=== PATIENT | female | born 2000 | race Caucasian/White ===

== ENCOUNTER 2021-10-16 18:59 | Emergency (ER) | payer OTHER, SELFPAY ==
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
[2021-10-16 19:44] VITALS: BP 119/75; PULSE 75; RESP 16; TEMP 36.6; O2SAT 100; BMI 19.3
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
== END 2021-10-16 22:58 | disposition home or self-care (01) ==
PROVIDERS: Emergency Provider Emergency Medicine
DX: S16.1XXA Strain of muscle, fascia and tendon at neck level, initial encounter (principal); V43.62XA Car passenger injured in collision with other type car in traffic accident, initial encounter; Y93.89 Activity, other specified; Y92.414 Local residential or business street as the place of occurrence of the external cause; Y99.9 Unspecified external cause status
CPT/HCPCS: 72040; 99283

== ENCOUNTER 2025-06-25 10:59 | Emergency (ER) | payer OTHER, SELFPAY ==
--- NOTE | ~2025-06-25 | CT_ITS ---
EXAMINATION: CT HEAD WITHOUT CONTRAST CLINICAL INFORMATION: dizziness. resolved numbness COMPARISON: None available. TECHNIQUE: Contiguous axial imaging was performed from the skull base to vertex without intravenous administration of contrast. This CT examination was performed using dose optimization techniques as appropriate, variously including the following: *Automated exposure control *Adjustment of mA and/or kV according to patient size (this includes techniques or standardized protocols for targeted exams where dose is matched to indication/reason for exam; i.e. extremities or head) *Use of iterative reconstruction technique DLP: 595 mGy-cm FINDINGS: No acute intracranial hemorrhage, mass effect, midline shift, hydrocephalus or herniation. Delatorre-white matter differentiation is normal. Posterior cranial fossa contents demonstrated no gross mass effect or acute hemorrhage. Sellar/suprasellar region demonstrated no gross masses. Craniocervical junction is intact with normal position of the cerebellar tonsils. No acute fracture, bony calvarium. No air-fluid levels in the paranasal sinuses. Tympanic cavities and mastoid cells are aerated. Pneumatized right petrous apex, congenital. Sabrina bullosa right middle turbinate. No gross masses in the intraconal or extraconal compartments of the orbits. The eyeballs are intact. CT/CT head/brain wo IV con IMPRESSION: No acute or structural brain abnormality by CT. Electronically signed by: Ray Campbell MD 06/25/2025 12:12 PM EDT
[2025-06-25 11:00] VITALS: BP 116/73; PULSE 85; RESP 18; TEMP 36.7; O2SAT 97; BMI 21.9
--- NOTE | 2025-06-25 11:04 | ECG_ITS ---
Test Reason : dizziness Blood Pressure : */* mmHG Vent. Rate : 70 BPM Atrial Rate : 70 BPM P-R Int : 154 ms QRS Dur : 88 ms QT Int : 376 ms P-R-T Axes : 56 53 44 degrees QTcB Int : 406 ms Sinus rhythm with marked sinus arrhythmia Possible Left atrial enlargement Borderline ECG No previous ECGs available Referred By: Enrique Dhillon Electronically Signed By: ELIE GROSS
--- NOTE | 2025-06-25 11:05 | ED_ITS ---
HPI - General Adult General Chief complaint: Dizziness Stated complaint: dizziness Time Seen by Provider: 06/25/25 11:57 Source: patient Mode of arrival: ambulatory Limitations: no limitations History of Present Illness HPI narrative: This is a 25 years old the female presented to the emergency department with the complaining of dizziness since Tuesday, she stated that Tuesday she fell numbness in the left side of the face and since then she has been feeling dizzy. Patient has no past medical history she is does not take any medicine she is not on control pills. She is fully ambulatory to the ED no ataxia. Onset (ago): day(s) (2) Location: head Radiation: non-radiation Severity: mild Pain Consistency: constant Relieving factors: none Exacerbating factors: none Associated symptoms: denies other symptoms Related Data Allergies Allergy/AdvReac Type Severity Reaction Status Date / Time No Known Allergies Allergy Verified 06/25/25 11:04 [facility] Past Medical History [facility] Narrative: Denies any past medical history Social History Social History Advance Directives: No Advance Directives Information Provided: No Physical Exam ED Exam Exam: She looks well she is not toxic-appearing she is sitting in the stretcher in not acute distress Vital Signs: Vital Signs - 24 hr 06/25/25 12:41 06/25/25 12:41 06/25/25 12:42 Temperature Pulse Rate 60 64 72 Respiratory Rate Blood Pressure 102/51 L 102/69 110/56 L Pulse Oximetry Oxygen Delivery Method 06/25/25 15:15 Temperature 97.3 F Pulse Rate 72 Respiratory Rate 16 Blood Pressure 110/56 L Pulse Oximetry 100 Oxygen Delivery Method Room Air BMI result Body Mass Index 21.9 Vital signs reviewed normal Const General: cooperative, healthy appearing, comfortable, no acute distress, well developed, alert and awake Nutritional Appearance: average body habitus Orientation/consciousness: patient oriented x3 Limitations: no limitations HENMT Head: Yes normal to inspection General nose exam: Normal external nose present Face and sinus: Yes normal facial exam Mouth: Normal oral and palatal mucosa present Neck Neck: Yes normal visual inspection Chest Chest palpation & inspection: normal inspection of the chest Resp Effort & Inspection: normal respiratory effort Auscultation: clear to auscultation bilaterally Cardio Jugular venous distension: no JVD Rate: regular rate Rhythm: regular rhythm GI Inspection: Yes normal to inspection Palpation (GI): Soft to palpation, not firm and nontender Auscultation: normal bowel sounds Skin General skin exam: no rashes or lesions noted Neuro Other: Neuro examination was normal cranial nerve 2-12 are normal she has no deficits in strength cerebellar testing normal incontinent [id number] I examined the gated there is no ataxia, Romberg test is negative General: patient oriented x3 Cranial nerves: Yes CN's II-XII intact bilaterally Motor exam (neuro): 5/5 motor strength present throughout NIH Stroke Scale Internal: Initial- Upon Arrival Level of Consciousness: Alert Level of Consciousness Questions: Answers both questions correctly Level of Consciousness Commands: Performs both tasks correctly Best Gaze: Normal Visual: No visual loss Facial Palsy: Normal Motor Arm (Right): No drift Motor Arm (Left): No drift Motor Leg (Right): No drift Motor Leg (Left): No drift Limb Ataxia: Absent Sensory: Normal Best Language: No aphasia Dysarthia: Normal Extinction and Inattention: No abnormality Score: 0 Course Course Course Narrative: RME: 25 yold female presents to the ED for dizziness off and on since tuesday. patient states left sided nubmness on tuesday that resolved. patient states sensatino of room spinning. patient denies ny chest pain, shortness of breath, facial droop, or trauma. NIH Score 0. labs, EKG, head CT scan ordered. Reevaluation(s) Reevaluation #1: She is feeling better at this time her workup is essentially negative she has no neuro exam normal think she can be discharged home Time: 14:52 Medical Decision Making Medical Decision Making [facility] Narrative: Patient presented with the dizziness is in Tuesday she has no risk factor for cardiovascular disease, it is reasonable to get blood work electrocardiogram On re-examination patient is doing much better she remained hemodynamically stable gait is stable workup negative including head CT and labs anticipate discharge Differential Diagnosis Differential Diagnoses: The differential diagnosis associated with the presentation includes Benign position vertigo/dehydration/unlikely CVA with a normal exam and no risk factor Admission/Observation Consideration of admission/observation: Escalation of care including admission/observation considered Lab Data [facility] Lab Attestation statement: I reviewed the patient's lab results. 06/25/25 11:20 06/25/25 11:20 Labs: Lab Results 06/25/25 Range/Units 11:20 WBC 7.0 (4.8-10.8) X10*3/uL RBC 4.69 (4.20-5.50) X10*6/uL Hgb 13.7 (12.0-16.0) g/dl Hct 42.1 (37.0-47.0) % MCV 89.8 (80.0-98.0) fL MCH 29.2 (27.0-33.0) pg MCHC 32.5 (31.0-35.0) g/dl RDW 13.0 (11.0-16.0) % Plt Count 249 (160-400) X10*3/uL MPV 10.0 (9.4-12.3) fL Immature Gran % (Auto) 0.3 (0.0-0.4) % Neut % (Auto) 73.5 H (45-73) % Lymph % (Auto) 18.6 L (20-40) % Sabine % (Auto) 6.1 (2-11) % Eos % (Auto) 1.4 (0-4) % Baso % (Auto) 0.1 (0-2) % Lymph # (Auto) 1.3 (1.2-4.9) X10*3/uL Sabine # (Auto) 0.4 (0.1-1.2) X10*3/uL Eos # (Auto) 0.1 (0.0-0.4) X10*3/uL Baso # (Auto) 0.0 (0.0-0.2) X10*3/uL Abs Immat Gran (auto) 0.02 (0.00-0.03) X10*3/uL Absolute Neuts (auto) 5.2 (2.0-8.3) x10*3/uL Absolute Nucleated RBC 0.000 (0.0-0.012) X10*3/uL Nucleated RBC % (auto) 0.0 (0.0-0.2) /100WBC PT 10.9 (10.9-12.4) SEC INR 1.0 (0.9-1.1) APTT 31.2 (26.7-34.1) SEC Sodium 142 (135-145) mmol/L Potassium 4.5 (3.3-5.1) mmol/L Chloride 108 (96-108) mmol/L Carbon Dioxide 29 (22-29) mmol/L Anion Gap 10 L (12-20) BUN 7 L (9-16) mg/dL Creatinine 0.78 (0.5-1.4) mg/dL Estim Creat Clear Calc 98.3 Estimated GFR > 60 Random Glucose 103 (60-115) mg/dL Calcium 9.0 (8.4-10.2) mg/dL Magnesium 2.2 (1.6-2.6) mg/dL Total Bilirubin 0.5 (0.0-1.0) mg/dL AST 23 (5-31) U/L ALT < 6 (0-31) U/L Alkaline Phosphatase 56 (39-117) U/L Troponin I High Sens < 2.7 (<3.5-17.0) ng/L Total Protein 7.4 (6.5-8.0) g/dL Albumin 4.6 (3.5-5.0) g/dL Beta HCG, Quant < 2 mIU/mL Independent Interpretation I performed an independent interpretation of an: EKG Interpretation: Normal sinus rhythm rate 75 normal axis normal intervals QRS narrow no ischemia Radiology Impression Discussion of test interpretation with radiology: I have reviewed the radiologist's reading. Radiologist Impression: DLP: 595 mGy-cm FINDINGS: No acute intracranial hemorrhage, mass effect, midline shift, hydrocephalus or herniation. Delatorre-white matter differentiation is normal. Posterior cranial fossa contents demonstrated no gross mass effect or acute hemorrhage. Sellar/suprasellar region demonstrated no gross masses. Craniocervical junction is intact with normal position of the cerebellar tonsils. No acute fracture, bony calvarium. No air-fluid levels in the paranasal sinuses. Tympanic cavities and mastoid cells are aerated. Pneumatized right petrous apex, congenital. Sabrina bullosa right middle turbinate. No gross masses in the intraconal or extraconal compartments of the orbits. The eyeballs are intact. CT/CT head/brain wo IV con IMPRESSION: No acute or structural brain abnormality by CT. Electronically signed by: Ray Campbell MD 06/25/2025 12:12 PM EDT RP Dictated By: Ray Mcallister MD Independent Historian mother Discharge Plan Discharge Clinical Impression: Dizziness Patient Disposition: Home, Self-Care Instructions: Dizziness (ED) Additional Instructions: Drink plenty of fluid rest you should get a primary care physician we will to give you the number of adult primary care number is [phone] or [phone] Return to the emergency room if feeling worse any concern Interventions: ED Discharge Assessment Last Done: 06/25/25 15:15 Discharge Date/Time: 06/25/25 15:17 Print Language: [place]
[2025-06-25 11:24] LABS: MANUAL DIFF FLAG NO
[2025-06-25 11:29] LABS: Hematocrit 42.1 % (37.0-47.0); Hemoglobin 13.7 g/dl (12.0-16.0); Imm Gran Abs Auto 0.02 X10*3/uL (0.00-0.03); Imm Gran Pct Auto 0.3 % (0.0-0.4); Lymphocytes Absolute Auto 1.3 X10*3/uL (1.2-4.9); Mean Corpuscular HGB Conc 32.5 g/dl (31.0-35.0); Mean Corpuscular Hemoglobin 29.2 pg (27.0-33.0); Mean Corpuscular Volume 89.8 fL (80.0-98.0); NRBC Abs Auto 0.000 X10*3/uL (0.0-0.012); NRBC Pct Auto 0.0 /100WBC (0.0-0.2); Platelet Count 249 X10*3/uL (160-400); Red Blood Count 4.69 X10*6/uL (4.20-5.50); White Blood Count 7.0 X10*3/uL (4.8-10.8)
[2025-06-25 11:51] LABS: Alanine Aminotransferase < 6 U/L (0-31); Albumin Level 4.6 g/dL (3.5-5.0); Alkaline Phosphatase 56 U/L (39-117); Anion Gap 10 (12-20); Aspartate Amino Transferase 23 U/L (5-31); Blood Urea Nitrogen 7 mg/dL (9-16); Calcium 9.0 mg/dL (8.4-10.2); Carbon Dioxide 29 mmol/L (22-29); Chloride 108 mmol/L (96-108); Creatinine Clr Calc Pharmacy 98.3; Estimated Glomerular Filt Rate > 60; Magnesium 2.2 mg/dL (1.6-2.6); Potassium 4.5 mmol/L (3.3-5.1); Sodium 142 mmol/L (135-145); Total Protein 7.4 g/dL (6.5-8.0); Troponin-I High Sensitivity < 2.7 ng/L (<3.5-17.0)
[2025-06-25 11:58] LABS: INTERNATIONAL NORM RATIO 1.0 (0.9-1.1); Partial Thromboplastin Time 31.2 SEC (26.7-34.1); Prothrombin Time 10.9 SEC (10.9-12.4)
[2025-06-25 12:41] VITALS: BP 102/51; BP 102/69; PULSE 60; PULSE 64
[2025-06-25 12:42] VITALS: BP 110/56; PULSE 72
[2025-06-25 15:15] VITALS: BP 110/56; PULSE 72; RESP 16; TEMP 36.3; O2SAT 100
== END 2025-06-25 15:17 | disposition home or self-care (01) ==
PROVIDERS: Physician Assistant; Emergency Provider Emergency Medicine
DX: R42 Dizziness and giddiness (principal)
CPT/HCPCS: 36415; 70450; 80053; 83735; 84484; 84702; 85025; 85610; 85730; 93005; 99284; 99285

== ENCOUNTER → 2025-06-25 11:04 | Outpatient (BNV) | payer OTHER, SELFPAY | PROVIDERS: Emergency Provider Emergency Medicine; Visit Provider Radiology Diagnostic Radiology | DX: R42 Dizziness and giddiness (principal) | CPT/HCPCS: 70450 ==

== ENCOUNTER → 2025-06-25 11:04 | Outpatient (BNV) | payer OTHER, SELFPAY | PROVIDERS: Emergency Provider Emergency Medicine; Visit Provider Internal Medicine | DX: R42 Dizziness and giddiness (principal) | CPT/HCPCS: 93010 ==